=== PATIENT | male | born 1990 | race Caucasian/White ===

== ENCOUNTER → 2018-12-18 | Outpatient (CLI) | payer OTHER ==
[~2018-12-18] MED LIST: ISOVUE-370 76% 100ML VIAL (Q9967) As Ordered ONE
--- NOTE | 2018-12-18 08:49 | REP ---
Clinical: Follow up solitary pulmonary nodule. Technique: Axial contrast enhanced images from the thoracic inlet to the upper abdomen with coronal and sagittal re-formations using 100 ml Isovue 370 intravenous contrast material. Comparison: Findings: There is a solitary 2 cm mildly enhancing mass along the periphery of the left lower lobe (image 90). No associated spiculated margination, satellite lesions, effusion, or adenopathy is appreciated. Differential diagnosis includes but is not limited to benign entities including hamartoma. Remainder of lung muhammad are well-aerated and clear. No further consolidation, significant nodule or mass lesion. No effusion. No pneumothorax. Tracheobronchial tree is patent. No axillary, hilar or mediastinal adenopathy. Mediastinum demonstrates normal thoracic aorta, pulmonary vasculature and heart/pericardium. Surrounding musculoskeletal structures are intact. Limited upper abdomen demonstrates normal bilateral adrenal glands. Impression: 2 cm solitary mildly enhancing lesion in the left lower lobe. No prior examination is currently available for comparison. Differential diagnosis includes but is not limited to benign hamartoma. Electronically Signed by Harris Arnold MD 12/18/2018 08:41 A
== END ==
LOC: M RAD 07:59
PROVIDERS: ATTEND Physician Assistant
DX: R91.1 Solitary pulmonary nodule (principal)
CPT/HCPCS: 71260; Q9967

== ENCOUNTER → 2019-07-13 | Outpatient (CLI) | payer OTHER ==
--- NOTE | 2019-07-13 13:23 | REP ---
Clinical: Solitary pulmonary nodule. Comparison: 12/18/2018. Technique: Axial noncontrast images from the thoracic inlet to the upper abdomen with coronal and sagittal re-formations. Findings: A stable 2 cm solitary nodules identified in the periphery of the left lower lobe current noncontrast examination confirms elements of central calcification suggesting calcifying granuloma versus benign hamartoma. Remainder of lung muhammad are well-aerated and clear. No effusion. No pneumothorax. Tracheobronchial tree is patent. Mediastinal structures including thoracic aorta and heart/pericardium are normal. Surrounding musculoskeletal structures are intact. Impression: 1. Stable 2 cm nodule in the left lower lobe likely representing a solitary calcifying granuloma versus benign hamartoma. Electronically Signed by Harris Arnold MD 07/13/2019 01:14 P
== END ==
LOC: M RAD 12:22
PROVIDERS: ATTEND Internal Medicine Pulmonary Disease
DX: R91.1 Solitary pulmonary nodule (principal)